=== PATIENT | female | born 1955 | race Caucasian/White ===

== ENCOUNTER 2016-05-07 10:56 | Emergency (ER) | payer BC ==
[~2016-05-07] VITALS: Wt 79.5 kg
[~2016-05-07 10:56] MED LIST: ASPI-664 PO; BENA20TA48 PO; LEVO50TA74 PO; METF-388 PO; SIMV20TA97 PO
[2016-05-07] MEDS ORDERED: IBUPROFEN 800 MG TAB PO ONE (12:00)
[2016-05-07] MEDS ORDERED: CELE100C PO (12:00)
--- NOTE | 2016-05-07 18:11 | ERD ---
ER Documentation Chief Complaint Date/Time DATE: 05/07/16 TIME: 18:06 Chief Complaint lle pain, denies trauma HPI Patient is a 61-year-old female. Yesterday she developed left calf pain suddenly when she was walking. There was no fall no trauma she has no shortness of breath no history of PE or DVT. No shortness of breath no fevers chills nausea vomiting. She says she has a history of CVA and takes tramadol. ROS All systems reviewed and are negative except as per history of present illness. Medications Home Meds Active Scripts Celecoxib* (Celebrex*) 100 Mg Capsule, 100 MG PO BID, #14 CAP Prov:UMU DELONG DO 05/07/16 Reported Medications Benazepril Hcl* (Benazepril Hcl*) 20 Mg Tablet, 20 MG PO DAILY, #30 TAB 01/11/16 Simvastatin* (Zocor*) 20 Mg Tablet, 20 MG PO QHS, #30 TAB 01/11/16 Levothyroxine Sodium* (Levothyroxine Sodium*) 50 Mcg Tablet, 50 MCG PO BEFORE BREAKFAST, #30 TAB 01/11/16 Metformin Hcl* (Metformin Hcl*) 1,000 Mg Tablet, 1000 MG PO WITH BREAKFAST, #30 TAB 01/11/16 Aspirin* (Aspirin* EC) 81 Mg Tablet.dr, 81 MG PO DAILY, TAB 01/11/16 Allergies Allergies: Coded Allergies: acetaminophen (Verified Allergy, Unknown, 01/11/16) codeine (Verified Allergy, Unknown, 01/11/16) PMhx/Soc Anesthesia Reaction: No Hx Neurological Disorder: Yes (TIA x 2) Hx Respiratory Disorders: No Hx Cardiac Disorders: Yes (HTN, high cholesterol) Hx Psychiatric Problems: No Hx Miscellaneous Medical Probl: Yes (DM type 2) Hx Alcohol Use: No Hx Substance Use: No Hx Tobacco Use: Yes Smoking Status: Never smoker Physical Exam Vitals Vital Signs Date Time Temp Pulse Resp B/P Pulse Ox O2 Delivery O2 Flow Rate FiO2 05/07/16 11:14 98.1 70 20 158/67 98 Physical Exam Const: [] Head: Atraumatic Eyes: Normal Conjunctiva ENT: Normal External Ears, Nose and Mouth. Neck: Full range of motion..~ No meningismus. Resp: Clear to auscultation bilaterally Cardio: Regular rate and rhythm, no murmurs Abd: Soft, non tender, non distended. Normal bowel sounds Skin: No petechiae or rashes Back: No midline or flank tenderness Ext: No cyanosis, or edema. Left calf diffusely mild to moderate tenderness to palpation, there is no tenseness, calf is soft there is no erythema no warmth no palpable masses no fibrous banding negative Diallo's test no Achilles tendon tenderness to palpation no edema or tenderness in the left popliteal area. Neur: Awake and alert Psych: Normal Mood and Affect Results 24 hrs Current Medications Medications (Trade) Dose Ordered Sig/Manohar Route PRN Reason Start Time Stop Time Status Last Admin Dose Admin Ibuprofen (Motrin) 800 mg ONCE ONCE PO 05/07/16 12:00 05/07/16 12:01 DC 05/07/16 11:53 Procedures/MDM I think this is likely a calf sprain. I doubt DVT or thrombophlebitis as the exam does not show or edema. This happened acutely while she was walking so it is likely a Sprain and I doubt serious calf tear. She has negative Diallo's test doubt Achilles tendon rupture. We applied Minor wrap for comfort support gave her pain medication here and crutches as well. Give pain medication for home as well. She should follow-up with her PCP in ED precautions discussed. I doubt PE as she is not breathing abnormally she has no shortness of breath and her pulse ox is normal. Vital signs are stable she is afebrile exam is otherwise not significant so I do not feel she requires an ultrasound or d- dimer to rule out DVT. Departure Diagnosis: Primary Impression: Pain of left calf Condition: Stable Patient Instructions: Muscle Strain, Extremity UMU DELONG DO May 07, 2016 18:11
== END 2016-05-07 12:31 | disposition home or self-care (01) ==
LOC: FTE 10:56
DX: M79.605 Pain in left leg (principal); I10 Essential (primary) hypertension; E11.9 Type 2 diabetes mellitus without complications; Z79.82 Long term (current) use of aspirin; Z79.84 Long term (current) use of oral hypoglycemic drugs; Z86.73 Personal history of transient ischemic attack (TIA), and cerebral infarction without residual deficits
CPT/HCPCS: 99283

== ENCOUNTER 2016-10-10 17:34 | Inpatient (IN) | payer BC ==
[~2016-10-10] VITALS: Ht 165.1 cm; Wt 66.5 kg
[~2016-10-10 17:34] MED LIST changes: +CELE100C PO; -METF-388 PO; +METF1000 PO; +SIMV20TA PO; -SIMV20TA97 PO
[2016-10-10 18:06] LABS: ADD SCAN DIFF NO
[2016-10-10 18:09] LABS: BASOPHIL # 0.1 10^3/ul (0.0-0.1); EOSINOPHILS # 0.1 10^3/ul (0.0-0.5); EOSINOPHILS % 1.9 % (0.0-7.0); HEMATOCRIT 36.2 % (37.0-47.0); HEMOGLOBIN 12.5 g/dl (12.0-16.0); LYMPHOCYTES # 2.1 10^3/ul (0.8-2.9); LYMPHOCYTES % 28.2 % (15.0-51.0); MEAN CORPUSCULAR HEMOGLOBIN 29.2 pg (29.0-33.0); MEAN CORPUSCULAR HGB CONC 34.5 g/dl (32.0-37.0); MEAN CORPUSCULAR VOLUME 84.6 fl (82.0-101.0); MEAN PLATELET VOLUME 9.6 fl (7.4-10.4); MONOCYTE # 0.6 10^3/ul (0.3-0.9); MONOCYTES % 8.8 % (0.0-11.0); NEUTROPHIL # 4.4 10^3/ul (1.6-7.5); NEUTROPHILS % 59.8 % (39.0-77.0); PLATELET COUNT 318 10^3/UL (140-415); RED BLOOD COUNT 4.28 10^6/ul (4.20-5.40); RED CELL DISTRIBUTION WIDTH 12.4 % (11.5-14.5); WHITE BLOOD COUNT 7.3 10^3/ul (4.8-10.8)
[2016-10-10 18:28] LABS: INR 0.91; PARTIAL THROMBOPLASTIN TIME 24.8 Sec (25.0-35.0); PROTIME 12.2 Sec (12.2-14.2)
[2016-10-10 18:29] LABS: ANION GAP 17 (8-16); BLOOD UREA NITROGEN 8 mg/dl (7-20); CALCIUM 9.8 mg/dl (8.4-10.2); CARBON DIOXIDE 23 mmol/L (21-31); CHLORIDE 92 mmol/L (97-110); GLUCOSE 98 mg/dl (70-220); POTASSIUM 3.5 mmol/L (3.5-5.1); SODIUM 128 mmol/L (135-144)
[2016-10-10 18:42] LABS: TROPONIN-I < 0.012 ng/ml (0.00-0.12)
--- NOTE | 2016-10-10 18:54 | RADRPT ---
PROCEDURE: CT Brain without contrast. CLINICAL INDICATION: Headache with visual loss TECHNIQUE: A CT of the brain was performed on a GE [employer] 64-slice CT scanner utilizing axial imaging from the skull base through the vertex without IV contrast. Multiplanar reformatted images were made. Images were reviewed on a PACS workstation. The CTDIvol is 39.97 mGy and the DLP is 654 .45 mGycm. One of the following 3 dose reduction techniques were used: Automated exposure control; adjustment of the mA and/or kV according to patient size; or use of iterative reconstruction technique. COMPARISON: None FINDINGS: There is no intracranial hemorrhage, mass effect, or midline shift. No extra-axial fluid collection is seen. The ventricles and sulci are age appropriate. Mild diffuse volume loss is present. A wed ge-shaped area of decreased attenuation is present in the right parietal convexity compatible with a chronic small vessel infarct. Mild decreased attenuation is present in the bilateral centrum semio quin and periventricular white matter compatible with mild chronic microvascular ischemic disease. The visualized scalp and calvarium are normal. The bilateral orbits are normal. The bilateral para nasal sinuses, mastoid air cells, and middle ear cavities are clear. IMPRESSION: 1. No evidence of acute intracranial hemorrhage, infarcts, or acute intracranial pathology. 2. Chr onic right parietal lobe small vessel infarct and mild chronic microvascular ischemic disease. 3. Mild diffuse volume loss RPTAT: HDC .Blanca Norris MD, MD Date Time Electronically viewed and signed by .Blanca Norris MD, MD on 10/10/2016 18:54 .C/
[2016-10-10 19:21] VITALS: TEMP 98.1
[2016-10-10] MEDS ORDERED: ASPIRIN 325 MG TAB PO ONE (19:30)
[2016-10-10] MEDS ORDERED: ACETAMINOPHEN 325 MG TAB PO ONE (21:00)
--- NOTE | 2016-10-10 21:05 | ERA ---
ER Documentation Chief Complaint Date/Time DATE: 10/10/16 Chief Complaint BIB SELF C/O SEEING FLASHING LIGHT AND HEADACHE X 2 HOURS HPI The patient is a 71-year-old female, presenting to the ER because of forgetfulness, transient loss of right peripheral vision, bitemporal headache that began about 2 hours ago. She has similar symptoms previously for TIA. The syncope, near syncope, neck pain, chest pain, dyspnea, abdominal pain, vomiting, dysuria, diarrhea. He does not smoke or drink Past medical history: History of TIA, diabetes mellitus, dyslipidemia, hypertension Past surgical history: Appendectomy, cholecystectomy ROS All systems reviewed and are negative except as per history of present illness. Medications Home Meds Reported Medications Benazepril Hcl* (Benazepril Hcl*) 20 Mg Tablet, 20 MG PO Q2D, #30 TAB TAKE EVERY OTHER DAY 01/11/16 Levothyroxine Sodium* (Levothyroxine Sodium*) 50 Mcg Tablet, 50 MCG PO BEFORE BREAKFAST, #30 TAB 01/11/16 Metformin Hcl* (Metformin Hcl*) 1,000 Mg Tablet, 1000 MG PO WITH BREAKFAST, #30 TAB 01/11/16 Discontinued Reported Medications Simvastatin* (Zocor*) 20 Mg Tablet, 20 MG PO QHS, #30 TAB 01/11/16 Aspirin* (Aspirin* EC) 81 Mg Tablet.dr, 81 MG PO DAILY, TAB 01/11/16 Discontinued Scripts Celecoxib* (Celebrex*) 100 Mg Capsule, 100 MG PO BID, #14 CAP Prov:UMU DELONG DO 05/07/16 Allergies Allergies: Coded Allergies: codeine (Verified Allergy, Unknown, 10/10/16) PMhx/Soc Anesthesia Reaction: No Hx Neurological Disorder: Yes (TIA x 2) Hx Respiratory Disorders: No Hx Cardiac Disorders: Yes (HTN, high cholesterol) Hx Psychiatric Problems: No Hx Miscellaneous Medical Probl: Yes (DM type 2) Hx Alcohol Use: No Hx Substance Use: No Hx Tobacco Use: Yes Smoking Status: Current every day smoker Physical Exam Vitals Vital Signs Date Time Temp Pulse Resp B/P Pulse Ox O2 Delivery O2 Flow Rate FiO2 10/10/16 19:21 98.1 71 18 153/78 97 Room Air 10/10/16 17:38 97.1 88 18 177/81 97 Physical Exam Const: No acute distress. Head: Atraumatic. Eyes: Normal Conjunctiva. ENT: Normal External Ears, Nose and Mouth. Neck: Full range of motion. No meningismus. Resp: Clear to auscultation bilaterally. Cardio: Regular rate and rhythm. Abd: Soft, non distended, normal bowel sounds, non tender. Skin: No petechiae or rashes. Back: No midline or flank tenderness. Ext: No cyanosis, or edema. Neur: Awake and alert. No focal deficit Psych: Normal Mood and Affect. Result Diagram: 10/10/16 1800 10/10/16 1800 Results 24 hrs Laboratory Tests Test 10/10/16 17:53 10/10/16 18:00 Bedside Glucose 99mg/dL White Blood Count 7.310^3/ul Red Blood Count 4.2810^6/ul Hemoglobin 12.5g/dl Hematocrit 36.2% Mean Corpuscular Volume 84.6fl Mean Corpuscular Hemoglobin 29.2pg Mean Corpuscular Hemoglobin Concent 34.5g/dl Red Cell Distribution Width 12.4% Platelet Count 94086^3/UL Mean Platelet Volume 9.6fl Neutrophils % 59.8% Lymphocytes % 28.2% Monocytes % 8.8% Eosinophils % 1.9% Basophils % 1.0% Nucleated Red Blood Cells % 0.0/100WBC Neutrophils # 4.410^3/ul Lymphocytes # 2.110^3/ul Monocytes # 0.610^3/ul Eosinophils # 0.110^3/ul Basophils # 0.110^3/ul Nucleated Red Blood Cells # 0.010^3/ul Prothrombin Time 12.2Sec Prothrombin Time Ratio 1.0 INR International Normalized Ratio 0.91 Activated Partial Thromboplast Time 24.8Sec Sodium Level 128mmol/L Potassium Level 3.5mmol/L Chloride Level 92mmol/L Carbon Dioxide Level 23mmol/L Anion Gap 17 Blood Urea Nitrogen 8mg/dl Creatinine 0.70mg/dl Glucose Level 98mg/dl Calcium Level 9.8mg/dl Troponin I < 0.012ng/ml Current Medications Medications (Trade) Dose Ordered Sig/Manohar Route PRN Reason Start Time Stop Time Status Last Admin Dose Admin Aspirin (Aspirin) 325 mg ONCE ONCE PO 10/10/16 19:30 10/10/16 19:31 DC 10/10/16 19:34 Acetaminophen (Tylenol Tab) 650 mg ONCE ONCE PO 10/10/16 21:00 10/10/16 21:01 DC 10/10/16 20:56 Procedures/[place] [id number] Radiology Main Line: [phone] DIAGNOSTIC IMAGING REPORT Patient: ZACHARY HADDAD : 1955 Age: 61 Sex: F MR #: [id number] DOS: 10/10/16 1752 Ordering MD: LA NENA BETHEA MD Location: E/R Room/Bed: PROCEDURE: CT Brain without contrast. CLINICAL INDICATION: Headache with visual loss TECHNIQUE: A CT of the brain was performed on a [employer] 64-slice CT scanner utilizing axial imaging from the skull base through the vertex without IV contrast. Multiplanar reformatted images were made. Images were reviewed on a PACS workstation. The CTDIvol is 39.97 mGy and the DLP is 654.45 mGycm. One of the following 3 dose reduction techniques were used: Automated exposure control; adjustment of the mA and/or kV according to patient size; or use of iterative reconstruction technique. COMPARISON: None FINDINGS: There is no intracranial hemorrhage, mass effect, or midline shift. No extra- axial fluid collection is seen. The ventricles and sulci are age appropriate. Mild diffuse volume loss is present. A wedge-shaped area of decreased attenuation is present in the right parietal convexity compatible with a chronic small vessel infarct. Mild decreased attenuation is present in the bilateral centrum semiovale and periventricular white matter compatible with mild chronic microvascular ischemic disease. The visualized scalp and calvarium are normal. The bilateral orbits are normal. The bilateral paranasal sinuses, mastoid air cells, and middle ear cavities are clear. IMPRESSION: 1. No evidence of acute intracranial hemorrhage, infarcts, or acute intracranial pathology. 2. Chronic right parietal lobe small vessel infarct and mild chronic microvascular ischemic disease. 3. Mild diffuse volume loss RPTAT: HDC .Blanca Norris MD, MD Date Time Electronically viewed and signed by .Blanca Norris MD, on 10/10/2016 18: 54 .C/ CC: LA NENA BETHEA MD MEDICAL MAKING DECISION: The patient is a 61-year-old female, presenting with acute transient ischemic attack. She was treated with aspirin 325 mg p.o. with good response The differential diagnoses considered include but are not limited to subarachnoid hemorrhage, occult trauma, CVA, meningitis, encephalitis, hypertension, tension, migraine, cluster, narcotic withdrawal, cervical spine disease. Departure Diagnosis: Primary Impression: TIA (transient ischemic attack) Condition: Stable Comments I discussed the findings with the patient. I discussed the patient with the on- call hospitalist Dr. Mccain at 7 PM who was made aware of the lab, the treatment, the patient condition. The patient is admitted to [facility] NENA Wolf MD Oct 10, 2016 21:05
[2016-10-10] MEDS ORDERED: ONDANSETRON 4 MG INJ IV STA (22:42)
[2016-10-10] MEDS ORDERED: morphine 4 MG/ML VIAL IV STA (22:42)
[2016-10-11] MEDS ORDERED: ONDANSETRON 4 MG INJ IV PRN
[2016-10-11] MEDS ORDERED: MAGNESIUM HYDROXIDE 30ML CUP PO PRN
[2016-10-11] MEDS ORDERED: ACETAMINOPHEN 325 MG TAB PO PRN
[2016-10-11] MEDS ORDERED: NACL 0.9% 3 ML SYG IV SCH
[2016-10-11] MEDS ORDERED: morphine 2 MG INJ IV PRN
[2016-10-11] MEDS ORDERED: ZOLPIDEM 5 MG TAB PO PRN
--- NOTE | 2016-10-11 01:12 | HP ---
DATE OF ADMISSION: 10/10/2016 TIME: 11:00 p.m. CHIEF COMPLAINT: Headache. HISTORY OF PRESENT ILLNESS: The patient is a 61-year-old female with a history of migraine headache s as well as non-insulin requiring diabetes and hypertension. The patient presents with severe head ache with decreased visual field on the right side and glares of light in her vision. The patient s tates that this has happened multiple times in the past, 4 times to be specific, and has been happen ing since 2011. She has seen a neurologist in the past, and she was not given a diagnosis. She had an MRI approximately 1 year ago that was reportedly normal. The patient denies any focal weakness in her extremities. She has no weakness in her face. She states that she had migraines in the past but stated that the migraine frequency has decreased. The patient has no other acute issues at thi s time. PAST MEDICAL HISTORY: Hypertension and diabetes, migraines. PAST SURGICAL HISTORY: Appendectomy, cholecystectomy. HOME MEDICATIONS: 1. Benazepril. 2. Synthroid. 3. Metformin. ALLERGIES: CODEINE. FAMILY HISTORY: Diabetes. SOCIAL HISTORY: Denies any alcohol, tobacco, drugs. She lives with her daughter. REVIEW OF SYSTEMS: A 12-point review of systems negative except for that mentioned in HPI. PHYSICAL EXAMINATION: VITAL SIGNS: Temperature is 99.1, pulse 71, respiratory rate is 18, BP is 122/68, saturation 97% on room air. GENERAL: No acute distress. Alert, oriented. HEENT: Normocephalic, atraumatic. CHEST: Clear to auscultation. CARDIOVASCULAR: Regular rate, rhythm. ABDOMEN: Nondistended, nontender, soft. EXTREMITIES: No clubbing, cyanosis, edema. LABORATORY: White count 7.3, hemoglobin 12.5, platelets are 318. Chemistry within normal limits ex cept for sodium 128, chloride 92, anion gap 17. Troponin is negative. INR is 0.9. DIAGNOSTICS: Brain CT shows no evidence of acute intracranial hemorrhage, infarction, acute intracr anial pathology. Chronic right parietal lobe small-vessel infarct and mild chronic microvascular is chemic disease, mild diffuse volume loss. ASSESSMENT AND PLAN: 1. Headache with aura, likely secondary to migraines, and the patient does have history of migraine s in the past. She is not on any medications for migraine headaches. The patient has no focal weak ness and no reported facial droop and is not felt to have an acute cerebrovascular accident or trans ient ischemic attack. Nonetheless, will rule out any possible etiology for CVA with 2D echo and a c arotid ultrasound. The patient would benefit from a neurology evaluation either in-house or as an o utpatient to treat underlying migraine headaches. Will admit to telemetry. 2. Hyponatremia, etiology unclear. Could be secondary to dehydration. Will treat with normal sali ne. 3. Hypothyroidism, stable. Continue home Synthroid. 4. Hypertension. Continue home benazepril. 5. Diabetes. Continue home metformin. 6. Prophylaxis: Lovenox. Dictated By: JAGJIT MEDNOZA MD BS/NTS Conf#: [id number] DID#: [id number]
[2016-10-11] MEDS: SOD CHLORIDE 0.9% 1,000 ML IV SCH ×4 (01:20→22:54)
[2016-10-11 06:19] LABS: ADD SCAN DIFF NO
[2016-10-11 06:30] LABS: BASOPHIL # 0.1 10^3/ul (0.0-0.1); BASOPHILS % 1.3 % (0.0-2.0); EOSINOPHILS # 0.1 10^3/ul (0.0-0.5); EOSINOPHILS % 2.5 % (0.0-7.0); HEMATOCRIT 36.8 % (37.0-47.0); HEMOGLOBIN 12.4 g/dl (12.0-16.0); LYMPHOCYTES # 1.8 10^3/ul (0.8-2.9); LYMPHOCYTES % 32.9 % (15.0-51.0); MEAN CORPUSCULAR HGB CONC 33.7 g/dl (32.0-37.0); MEAN CORPUSCULAR VOLUME 86.2 fl (82.0-101.0); MEAN PLATELET VOLUME 9.8 fl (7.4-10.4); MONOCYTE # 0.5 10^3/ul (0.3-0.9); MONOCYTES % 8.7 % (0.0-11.0); NEUTROPHILS % 54.4 % (39.0-77.0); PLATELET COUNT 275 10^3/UL (140-415); RED BLOOD COUNT 4.27 10^6/ul (4.20-5.40); RED CELL DISTRIBUTION WIDTH 12.6 % (11.5-14.5); WHITE BLOOD COUNT 5.5 10^3/ul (4.8-10.8)
[2016-10-11 07:07] LABS: CHOL/HDL RATIO 4.4 RATIO
[2016-10-11 07:17] LABS: CALCIUM 9.3 mg/dl (8.4-10.2); CREATININE 0.72 mg/dl (0.44-1.00); MAGNESIUM 2.1 mg/dl (1.7-2.5); PHOSPHORUS 3.9 mg/dl (2.5-4.9); POTASSIUM 4.2 mmol/L (3.5-5.1)
[2016-10-11 07:24] LABS: T3 UPTAKE 31.6 % (23.5-40.5)
--- NOTE | 2016-10-11 07:25 | RADRPT ---
PROCEDURE: Doppler US Carotids. CLINICAL INDICATION: Stroke TECHNIQUE: Multiple sonographic of the carotid bifurcation region and vertebral arteries were obta ined utilizing gipson scale, duplex and color-flow imaging. The images were reviewed on a PACS worksta tion. Stenoses were measured using velocity criteria that are extrapolated from diameter data as def ined by the Society of Radiologists in Ultrasound Consensus Conference Radiology 2003; 229;340-346. This study does indirectly reference the measurement of the distal ICA diameter as the denominator f or stenosis measurement, where measured. COMPARISON: None FINDINGS: Evaluation of the right carotid system shows there is mild intimal medial thickening without signifi cant plaque formation.. Evaluation of the left carotid system shows there is mild intimal medial thickening without signific ant plaque formation.. There is antegrade flow within the vertebral arteries bilaterally. RIGHT CAROTID MEASUREMENTS: Common Carotid Jasbct84.1 (cm/sec) Internal Carotid Artery - omtvlkmn36.7 (cm/sec) Internal Carotid Artery - mid44.3 (cm/sec) Internal Carotid Artery - nasizp87 (cm/sec) Internal Carotid/Common Carotid0.7 LEFT CAROTID MEASUREMENTS: Common Carotid Artery 76.6 (cm/sec) Internal Carotid Artery - proximal 56.5 (cm/sec) Internal Carotid Artery - mid 61.1 (cm/sec) Internal Carotid Artery - distal 60.1 (cm/sec) Internal Carotid/Common Carotid 0.8 IMPRESSION: Minimal atherosclerotic change. No hemodynamically significant stenosis. RPTAT: HLBE Physician Katie Date Time Electronically viewed and signed by Physician Katie on 10/11/2016 07:25 JESS/
[2016-10-11] MEDS: LEVOTHYROXINE 50 MCG TAB PO SCH (07:59)
[2016-10-11] MEDS ORDERED: metFORMIN 500 MG TAB PO SCH (08:00)
[2016-10-11] MEDS ORDERED: BENAZEPRIL 20 MG TAB PO SCH (09:00)
[2016-10-11] MEDS: ENOXAPARIN 40 MG/0.4 ML SYG SC SCH (09:00)
[2016-10-11] MEDS: HYDROCODONE/APAP (5/325) TAB PO PRN (10:25)
--- NOTE | 2016-10-11 15:55 | RADRPT ---
PROCEDURE: MRI Brain without and with contrast. CLINICAL INDICATION: Migraine with visual loss TECHNIQUE: Multiplanar MRI of the brain without and with contrast was performed on a 3.0 T scanner with the following sequences obtained: T1-weighted, T2-weighted/FLAIR, diffusion weighted (with ADC map), GRE, postcontrast T1-weighted. 10 cc Magnevist intravenous contrast was administered. COMPARISON: CT brain 10/10/2016 FINDINGS: No acute/recent ischemic infarction or intracranial hemorrhage / blood degradation products are iden tified. No extra-axial fluid collection is seen. There is no mass effect. No midline shift is identified. The ventricles and sulci are mildly enlarged, compatible with volume loss. Minimal areas of increased T2 / FLAIR signal intensity are present in the periventricular - deep whi te matter, nonspecific but likely related to chronic small vessel ischemic changes. No abnormal par enchymal, leptomeningeal or dural enhancement is identified. Flow voids are identified in the proximal intracranial arteries and dural sinuses suggesting patency . The mastoid air cells and paranasal sinuses are grossly clear. IMPRESSION: 1. No evidence of acute intracranial pathology. 2. Mild volume loss, with minimal chronic small vessel ischemic changes. RPTAT: GG .Chirag Meza MD, MD Date Time Electronically viewed and signed by .Chirag Meza MD, on 10/11/2016 15:54 .O/
--- NOTE | 2016-10-11 16:48 | PN ---
Date/Time of Note Date/Time of Note DATE: 10/11/16 TIME: 16:45 Assessment/Plan VTE Prophylaxis VTE Prophylaxis Intervention: SCD's Lines/Catheters IV Catheter Type (from Nrs): Peripheral IV Assessment/Plan Chief Complaint/Hosp Course Assessment and plan 1. Headache with aura secondary to migraines versus possible TIA. MRI of the brain was negative for acute pathology. Patient still reports having some paresthesias on bilateral lower extremities below the knee as well as bilateral upper extremities. Neurologist to follow. 2. History of diabetes. Continue on metformin 3. Level thyroxine. Continue on Synthroid medication 4. Hyponatremia. Improving at present. Continue on IV hydration Disposition plan: Neurologist to follow. Will follow up with recommendations. Discussed plan of care with Dr. Curiel Problems: Subjective 24 Hr Interval Summary Free Text/Dictation No acute distress seen at this time. Reports still feeling some paresthesias below the knee and also in bilateral upper extremity Exam/Review of Systems Vital Signs Vitals Vital Signs Date Time Temp Pulse Resp B/P Pulse Ox O2 Delivery O2 Flow Rate FiO2 10/11/16 16:00 57 14 113/67 99 10/11/16 12:11 Room Air 10/10/16 19:21 98.1 Exam Constitutional: alert, oriented Psych: no complaints Head: normocephalic Neck: supple, No jvd Respiratory: clear to auscultation, normal air movement Cardiovascular: regular rate and rhythm Gastrointestinal: non-tender, soft Neurological: nl mental status, nl speech Results Result Diagram: 10/11/16 0553 10/11/16 0553 Results 24 hrs Laboratory Tests Test 10/10/16 17:53 10/10/16 18:00 10/11/16 05:53 Bedside Glucose 99 White Blood Count 7.3 5.5 # Red Blood Count 4.28 4.27 Hemoglobin 12.5 12.4 Hematocrit 36.2 L 36.8 L Mean Corpuscular Volume 84.6 86.2 Mean Corpuscular Hemoglobin 29.2 29.0 Mean Corpuscular Hemoglobin Concent 34.5 33.7 Red Cell Distribution Width 12.4 # 12.6 Platelet Count 318 275 Mean Platelet Volume 9.6 9.8 Neutrophils % 59.8 54.4 Lymphocytes % 28.2 32.9 Monocytes % 8.8 8.7 Eosinophils % 1.9 2.5 Basophils % 1.0 1.3 Nucleated Red Blood Cells % 0.0 0.0 Neutrophils # 4.4 3.0 Lymphocytes # 2.1 1.8 Monocytes # 0.6 0.5 Eosinophils # 0.1 0.1 Basophils # 0.1 0.1 Nucleated Red Blood Cells # 0.0 0.0 Prothrombin Time 12.2 Prothrombin Time Ratio 1.0 INR International Normalized Ratio 0.91 Activated Partial Thromboplast Time 24.8 L Sodium Level 128 L 134 L Potassium Level 3.5 4.2 Chloride Level 92 L 99 Carbon Dioxide Level 23 26 Anion Gap 17 H 13 Blood Urea Nitrogen 8 7 Creatinine 0.70 0.72 Glucose Level 98 86 Calcium Level 9.8 9.3 Troponin I < 0.012 Hemoglobin A1c 5.7 Phosphorus Level 3.9 Magnesium Level 2.1 Triglycerides Level 114 Cholesterol Level 236 H LDL Cholesterol, Calculated 160 HDL Cholesterol 53 Cholesterol/HDL Ratio 4.4 Free Thyroxine Index 3.16 Thyroxine (T4) 10.0 Triiodothyronine (T3) Uptake 31.6 Medications Medications Current Medications Sodium Chloride (NS) 1,000 ml @ 125 mls/hr Q8H IV Last administered on 08:32; Admin Dose 125 MLS/HR; Start 10/10/16 at 23:57 Ondansetron HCl (Zofran Inj) 4 mg Q6H PRN IV NAUSEA AND/OR VOMITING; Start at 00:00 Acetaminophen (Tylenol Tab) 650 mg Q6H PRN PO PAIN LEVEL 1-3 OR FEVER; Start at 00:00 Acetaminophen/ Hydrocodone Bitart ([place] (5/325)) 1 tab Q6H PRN PO MODERATE PAIN LEVEL 4-6 Last administered on 10/11/16 10:25; Admin Dose 1 TAB; Start at 00:00 Morphine Sulfate (morphine) 2 mg Q4H PRN IV SEVERE PAIN LEVEL 7-10; Start 10/11 at 00:00 Magnesium Hydroxide (Milk Of Mag) 30 ml DAILY PRN PO CONSTIPATION; Start at 00:00 Zolpidem Tartrate (Ambien) 5 mg QHS PRN PO SLEEP; Start 10/11/16 at 00:00 Enoxaparin Sodium (Lovenox) 40 mg DAILY SC Last administered on 10/11/16 09:00 ; Admin Dose 40 MG; Start 10/11/16 at 09:00 Benazepril HCl (Lotensin) 20 mg Q2D@09 PO ; Start 10/12/16 at 09:00 RANDA MUNGUIA Oct 11, 2016 16:48
[2016-10-11 18:53] VITALS: BP 138/76; PULSE 66; RESP 17
[2016-10-11 18:59] VITALS: Ht 165.1 cm; Wt 66.5 kg
[2016-10-11 20:00] VITALS: BP 117/71; RESP 20
[2016-10-11 20:24] VITALS: PULSE 60
--- NOTE | 2016-10-11 20:26 | CONS ---
Date/Time of Note Date/Time of Note DATE: 10/11/16 TIME: 20:25 Assessment/Plan Assessment/Plan Chief Complaint/Hosp Course 61 year old female with history of HTN, DM , on admission hyponatremia with Na: 128 with migraine headaches w aura admitted with severe headache associated with blurred vision, likely migraine w aura. Recommendations: MRI Brain with and without contrast- chronic small vessel ischemic changes Duplex is negative recommend reglan 10 mg q8h prn for nausea advised patient she may benefit from high doses of Ibuprofen 800 mg at migraine onset in the future continue IVF will follow up again tomorrow she will also require outpatient neurology follow up to manage migraines Problems: Consultation Date/Type/Reason Admit Date/Time Oct 10, 2016 at 20:13 Date of Consultation: Oct 11, 2016 Type of Consultation: Neurology Reason for Consultation eval of headaches w visual changes Referring Provider: RANDA MUNGUIA of Present Illness 61 year old female history of migraine headaches, non-insulin dependent DM, HTN presenting with complaints of severe headaches with decreased visual acuity on right side with blurred vision and complaints of nausea and dizziness. She experiences episodes about 1-2 times a month similar to this, has had events like this in the past up to 4 she admits to. She has seen a neurologist before, received MRI and has not been prescribed any prophylactic meds. She has no focal deficits at this time. Her headaches are currently much improved with morphine given in the ER. Psychological: no complaints Social History Smoking Status: Current every day smoker Exam/Review of Systems Vital Signs Vitals Vital Signs Date Time Temp Pulse Resp B/P Pulse Ox O2 Delivery O2 Flow Rate FiO2 10/11/16 20:24 60 10/11/16 20:00 98.2 20 117/71 97 10/11/16 12:11 Room Air Exam Constitutional: alert, oriented, well developed Head: atraumatic, normocephalic Eyes: EOMI, nl conjunctiva Neurological: QUALITY LAB TECHNICIAN II-XII intact, DTR's symmetric, nl mental status, nl speech, nl strength Results Result Diagram: 10/11/16 0553 10/11/16 0553 Results 24 hrs Laboratory Tests Test 10/11/16 05:53 10/11/16 18:16 White Blood Count 5.5 # Red Blood Count 4.27 Hemoglobin 12.4 Hematocrit 36.8 L Mean Corpuscular Volume 86.2 Mean Corpuscular Hemoglobin 29.0 Mean Corpuscular Hemoglobin Concent 33.7 Red Cell Distribution Width 12.6 Platelet Count 275 Mean Platelet Volume 9.8 Neutrophils % 54.4 Lymphocytes % 32.9 Monocytes % 8.7 Eosinophils % 2.5 Basophils % 1.3 Nucleated Red Blood Cells % 0.0 Neutrophils # 3.0 Lymphocytes # 1.8 Monocytes # 0.5 Eosinophils # 0.1 Basophils # 0.1 Nucleated Red Blood Cells # 0.0 Sodium Level 134 L Potassium Level 4.2 Chloride Level 99 Carbon Dioxide Level 26 Anion Gap 13 Blood Urea Nitrogen 7 Creatinine 0.72 Glucose Level 86 Hemoglobin A1c 5.7 Calcium Level 9.3 Phosphorus Level 3.9 Magnesium Level 2.1 Triglycerides Level 114 Cholesterol Level 236 H LDL Cholesterol, Calculated 160 HDL Cholesterol 53 Cholesterol/HDL Ratio 4.4 Free Thyroxine Index 3.16 Thyroxine (T4) 10.0 Triiodothyronine (T3) Uptake 31.6 Bedside Glucose 149 Medications Medications Current Medications Sodium Chloride (NS) 1,000 ml @ 125 mls/hr Q8H IV Last administered on 08:32; Admin Dose 125 MLS/HR; Start 10/10/16 at 23:57 Ondansetron HCl (Zofran Inj) 4 mg Q6H PRN IV NAUSEA AND/OR VOMITING; Start at 00:00 Acetaminophen (Tylenol Tab) 650 mg Q6H PRN PO PAIN LEVEL 1-3 OR FEVER; Start at 00:00 Acetaminophen/ Hydrocodone Bitart ([place] (5/325)) 1 tab Q6H PRN PO MODERATE PAIN LEVEL 4-6 Last administered on 10/11/16 10:25; Admin Dose 1 TAB; Start at 00:00 Morphine Sulfate (morphine) 2 mg Q4H PRN IV SEVERE PAIN LEVEL 7-10; Start 10/11 at 00:00 Magnesium Hydroxide (Milk Of Mag) 30 ml DAILY PRN PO CONSTIPATION; Start at 00:00 Zolpidem Tartrate (Ambien) 5 mg QHS PRN PO SLEEP; Start 10/11/16 at 00:00 Enoxaparin Sodium (Lovenox) 40 mg DAILY SC Last administered on 10/11/16 09:00 ; Admin Dose 40 MG; Start 10/11/16 at 09:00 Benazepril HCl (Lotensin) 20 mg Q2D@09 PO ; Start 10/12/16 at 09:00 TRICE PICKETT MD Oct 11, 2016 20:26
[2016-10-12] VITALS (7 sets, daily range): BP systolic 100–150; BP diastolic 58–68; PULSE 53–64; RESP 18–20
[2016-10-12] MEDS: LEVOTHYROXINE 50 MCG TAB PO SCH (06:17)
[2016-10-12] MEDS: SOD CHLORIDE 0.9% 1,000 ML IV SCH ×2 (06:33→09:29)
[2016-10-12] MEDS ORDERED: BENAZEPRIL 20 MG TAB PO SCH (09:00)
[2016-10-12] MEDS: ENOXAPARIN 40 MG/0.4 ML SYG SC SCH (09:33)
--- NOTE | 2016-10-12 10:52 | CONS ---
Date/Time of Note Date/Time of Note DATE: 10/12/16 TIME: 10:51 Consult Date/Type/Reason Admit Date/Time Oct 10, 2016 at 20:13 Initial Consult Date 10/11/16 Type of Consultation: Neurology Reason for Consultation migraine w aura Ordering Provider: RANDA MUNGUIA Subjective overnight no issues today she c/o tension sensation in her head after eating breakfast and taking am meds Objective Vital Signs Date Time Temp Pulse Resp B/P Pulse Ox O2 Delivery O2 Flow Rate FiO2 10/12/16 08:43 64 10/12/16 07:39 97.2 18 124/67 100 10/11/16 12:11 Room Air Intake and Output 10/11/16 10/11/16 10/12/16 15:00 23:00 07:00 Intake Total 1000 ml 1200 ml Output Total 700 ml Balance 1000 ml 500 ml Exam Constitutional: alert, oriented, well developed Head: atraumatic, normocephalic Eyes: EOMI, nl conjunctiva Neurological: MENTAL HEALTH AIDE II-XII intact, DTR's symmetric, nl mental status, nl speech, nl strength Results/Medications Result Diagram: 10/11/16 0553 10/11/16 0553 Results 24 hrs Laboratory Tests Test 10/11/16 18:16 Bedside Glucose 149 Medications Current Medications Sodium Chloride (NS) 1,000 ml @ 125 mls/hr Q8H IV Last administered on 09:29; Admin Dose 125 MLS/HR; Start 10/10/16 at 23:57 Ondansetron HCl (Zofran Inj) 4 mg Q6H PRN IV NAUSEA AND/OR VOMITING; Start at 00:00 Acetaminophen (Tylenol Tab) 650 mg Q6H PRN PO PAIN LEVEL 1-3 OR FEVER; Start at 00:00 Acetaminophen/ Hydrocodone Bitart ([place] (5/325)) 1 tab Q6H PRN PO MODERATE PAIN LEVEL 4-6 Last administered on 10/11/16 10:25; Admin Dose 1 TAB; Start at 00:00 Morphine Sulfate (morphine) 2 mg Q4H PRN IV SEVERE PAIN LEVEL 7-10; Start 10/11 at 00:00 Magnesium Hydroxide (Milk Of Mag) 30 ml DAILY PRN PO CONSTIPATION; Start at 00:00 Zolpidem Tartrate (Ambien) 5 mg QHS PRN PO SLEEP; Start 10/11/16 at 00:00 Enoxaparin Sodium (Lovenox) 40 mg DAILY SC Last administered on 10/12/16 09:33 ; Admin Dose 40 MG; Start 10/11/16 at 09:00 Benazepril HCl (Lotensin) 20 mg Q2D@09 PO Last administered on 10/12/16 09:30 ; Admin Dose 20 MG; Start 10/12/16 at 09:00 Assessment/Plan Chief Complaint/Hosp Course 61 year old female with history of HTN, DM , on admission hyponatremia with Na: 128 with migraine headaches w aura admitted with severe headache associated with blurred vision, likely migraine w aura. Recommendations: MRI Brain with and without contrast- chronic small vessel ischemic changes no stroke Duplex is negative recommend reglan 10 mg q8h prn for nausea continue IVF outpatient follow up w neurology for migraine management, she does not experienced migraines frequent enough to start on a daily prophylaxis advised patient she may benefit from high doses of Ibuprofen 800 mg at migraine onset in the future Problems: TRICE PICKETT MD Oct 12, 2016 10:52
[2016-10-12] MEDS: HYDROCODONE/APAP (5/325) TAB PO PRN (11:06)
[2016-10-12 11:19] LABS: ADD SCAN DIFF NO
[2016-10-12 11:23] LABS: BASOPHIL # 0.1 10^3/ul (0.0-0.1); BASOPHILS % 1.2 % (0.0-2.0); EOSINOPHILS # 0.1 10^3/ul (0.0-0.5); EOSINOPHILS % 1.5 % (0.0-7.0); HEMATOCRIT 38.2 % (37.0-47.0); HEMOGLOBIN 12.6 g/dl (12.0-16.0); LYMPHOCYTES # 1.3 10^3/ul (0.8-2.9); LYMPHOCYTES % 22.7 % (15.0-51.0); MEAN CORPUSCULAR HEMOGLOBIN 28.6 pg (29.0-33.0); MEAN CORPUSCULAR VOLUME 86.8 fl (82.0-101.0); MEAN PLATELET VOLUME 9.9 fl (7.4-10.4); MONOCYTE # 0.4 10^3/ul (0.3-0.9); MONOCYTES % 7.2 % (0.0-11.0); NEUTROPHIL # 3.9 10^3/ul (1.6-7.5); NEUTROPHILS % 67.1 % (39.0-77.0); PLATELET COUNT 303 10^3/UL (140-415); RED CELL DISTRIBUTION WIDTH 12.6 % (11.5-14.5); WHITE BLOOD COUNT 5.8 10^3/ul (4.8-10.8)
[2016-10-12 11:41] LABS: BILIRUBIN,INDIRECT 0.3 mg/dl (0-1.1); BILIRUBIN,TOTAL 0.3 mg/dl (0.2-1.3); CALCIUM 9.5 mg/dl (8.4-10.2); CREATININE 0.68 mg/dl (0.44-1.00); POTASSIUM 4.2 mmol/L (3.5-5.1); TOTAL PROTEIN 7.5 g/dl (6.1-8.1)
[2016-10-12] MEDS ORDERED: FIORICET PO (12:52)
--- NOTE | 2016-10-12 12:54 | PDOCDIS ---
Discharge Instructions DIAGNOSIS Discharge Diagnosis 1. Suspect migraine with aura 2. Essential hypertension 3. Diabetes 4. Hyponatremia CONDITION Patient Condition: Stable HOME CARE INSTRUCTIONS: Diet Instructions: Low Fat /CholesterolSpecial Diet: carb controlled FOLLOW UP/APPOINTMENTS Follow-up Plan 1. Follow-up with your primary care provider within a week RANDA MUNGUIA Oct 12, 2016 12:54
--- NOTE | 2016-10-12 13:24 | RADRPT ---
Echocardiogram Report Patient Name: ZACHARY HADDAD Gender: Female Date: 1955 Study Date: 11-Oct-2016 Channel Layer: Denilson Nelson [facility] Location: [facility] Ref. Physician: JAGJIT MENDOZA Quality: Good Procedures: Transthoracic echocardiogram with complete 2D, M-Mode, and doppler examination. Indications: Cerebrovascular Accident. 2D/M Mode Doppler Measurement Value Normal Ranges Measurement Value Normal Ranges LVIDd 2D 4.0 3.5 - 5.6 cm AV Peak Feroz 1.4 m/sec LVIDs 2D 1.4 2.1 - 4.1 cm AV Peak PG 7.0 mmHg FS 2D 65.1 % LVOT Peak Feroz 1.0 m/sec LVPWd 2D 0.8 0.6 - 1.1 cm LVOT Peak PG 4.0 mmHg IVSd 2D 0.9 0.6 - 1.1 cm MV E Peak Feroz 0.7 m/sec IVS/LVPW 2D 1.0 MV A Peak Feroz 0.8 m/sec AoR Diam 2D 2.8 2.0 - 3.7 cm MV E/A 0.9 LA/Ao 2D 1 0 - 1 MV Decel Time 222 msec EDV 2D 61.6 cm3 MV E/A 0.9 ESV 2D 2.6 cm3 TR Peak Feroz 2.6 m/sec LA Dimen 2D 3.6 2.3 - 4.0 cm TR Peak PG 28.0 mmHg RVSP 31.0 mmHg Findings Left Ventricle: Normal left ventricular systolic function. Normal left ventricular cavity size. Normal left ventricular wall thickness. Ejection fraction is visually estimated at 6065 %. Tissue Doppler/Mitral Doppler indices are within normal limits. Right Ventricle: Normal right ventricular size. Normal right ventricular systolic function. Left Atrium: The left atrium is normal in size. Right Atrium: The right atrium is normal in size. Mitral Valve: Mitral valve leaflets appear mildly thickened. Mild mitral annular calcification. Trace mitral regurgitation. Aortic Valve: Normal appearance of the aortic valve. No significant aortic stenosis or insufficiency. Tricuspid Valve: Normal appearance of the tricuspid valve. Estimated peak PA systolic pressure 31 mmHg. There is mild tricuspid regurgitation. Pulmonic Valve: Normal pulmonic valve appearance. Pericardium: Normal pericardium with no significant pericardial effusion. Aorta: Normal aortic root. IVC: Normal size and normal respiratory collapse consistent with normal right atrial pressure. Conclusions 1.The left ventricle is normal in size and systolic function. 2.Estimated left ventricular ejection fraction of 60-65%. Electronically Signed By: Remi Schulte 12-Oct-2016 13:24:22 -0700 Patient Name: ZACHARY HADDAD Study Date: 11-Oct-2016 [id number]
[2016-10-12] MEDS ORDERED: metFORMIN 500 MG TAB PO SCH (14:00)
== END 2016-10-12 14:51 | disposition home or self-care (01) | DRG 103 ==
LOC: E/R 17:34 → TEL 20:13
PROVIDERS: ADMIT Internal Medicine; ATTEND Internal Medicine
DX: G43.109 Migraine with aura, not intractable, without status migrainosus (principal); E87.1 Hypo-osmolality and hyponatremia; I10 Essential (primary) hypertension; G45.9 Transient cerebral ischemic attack, unspecified; Z86.73 Personal history of transient ischemic attack (TIA), and cerebral infarction without residual deficits; E11.9 Type 2 diabetes mellitus without complications; E78.5 Hyperlipidemia, unspecified; F17.200 Nicotine dependence, unspecified, uncomplicated; R20.9 Unspecified disturbances of skin sensation
CPT/HCPCS: 36415; 70450; 70553; 80048; 80061; 80076; 82962; 83036; 83735; 84100; 84436; 84479; 84484; 85025; 85610; 85730; 93306; 93880; 96361; 96372; 96374; 96375; J1650; J2270; J2405; J7030

== ENCOUNTER 2016-10-14 13:22 | Emergency (ER) | payer BC ==
[~2016-10-14] VITALS: Ht 152.4 cm; Wt 65.0 kg
[~2016-10-14 13:22] MED LIST changes: -ASPI-664 PO; -CELE100C PO; +FIORICET PO; -SIMV20TA PO
[2016-10-14 13:27] VITALS: Ht 152.4 cm; Wt 65.0 kg
[2016-10-14 14:20] LABS: ADD SCAN DIFF NO
[2016-10-14 14:29] LABS: ADD UMIC NO; UR ASCORBIC ACID NEGATIVE (NEGATIVE); UR BILIRUBIN (Dip) NEGATIVE (NEGATIVE); UR BLOOD (Dip) NEGATIVE (NEGATIVE); UR CLARITY CLEAR (CLEAR); UR COLOR COLORLESS (YELLOW); UR GLUCOSE (Dip) NEGATIVE (NEGATIVE); UR KETONES (Dip) TRACE mg/dL (NEGATIVE); UR LEUKOCYTE ESTERASE (Dip) NEGATIVE Leu/ul (NEGATIVE); UR NITRITE (Dip) NEGATIVE (NEGATIVE); UR SPECIFIC GRAVITY (Dip) 1.002 (1.003-1.030); UR TOTAL PROTEIN (Dip) NEGATIVE (NEGATIVE); UR UROBILINOGEN (Dip) NEGATIVE (NEGATIVE)
[2016-10-14 14:34] LABS: BASOPHIL # 0.1 10^3/ul (0.0-0.1); BASOPHILS % 0.7 % (0.0-2.0); EOSINOPHILS # 0.1 10^3/ul (0.0-0.5); EOSINOPHILS % 1.2 % (0.0-7.0); HEMATOCRIT 38.3 % (37.0-47.0); HEMOGLOBIN 13.3 g/dl (12.0-16.0); LYMPHOCYTES # 1.5 10^3/ul (0.8-2.9); LYMPHOCYTES % 19.6 % (15.0-51.0); MEAN CORPUSCULAR HEMOGLOBIN 29.3 pg (29.0-33.0); MEAN CORPUSCULAR HGB CONC 34.7 g/dl (32.0-37.0); MEAN CORPUSCULAR VOLUME 84.4 fl (82.0-101.0); MEAN PLATELET VOLUME 9.7 fl (7.4-10.4); MONOCYTE # 0.5 10^3/ul (0.3-0.9); MONOCYTES % 6.1 % (0.0-11.0); NEUTROPHIL # 5.4 10^3/ul (1.6-7.5); NEUTROPHILS % 72.1 % (39.0-77.0); PLATELET COUNT 318 10^3/UL (140-415); RED BLOOD COUNT 4.54 10^6/ul (4.20-5.40); WHITE BLOOD COUNT 7.5 10^3/ul (4.8-10.8)
[2016-10-14 14:41] LABS: INR 0.83; PROTIME 11.4 Sec (12.2-14.2); PT RATIO 0.9
[2016-10-14 14:45] LABS: ANION GAP 15 (8-16); BLOOD UREA NITROGEN 8 mg/dl (7-20); CALCIUM 10.1 mg/dl (8.4-10.2); CARBON DIOXIDE 25 mmol/L (21-31); CHLORIDE 93 mmol/L (97-110); CREATININE 0.67 mg/dl (0.44-1.00); GLUCOSE 97 mg/dl (70-220); POTASSIUM 4.4 mmol/L (3.5-5.1); SODIUM 129 mmol/L (135-144)
--- NOTE | 2016-10-14 14:51 | RADRPT ---
PROCEDURE: CT brain without contrast CLINICAL INDICATION: Dizziness, possible stroke TECHNIQUE: CT of the brain without contrast performed on a multidetector CT scanner, with multiplan ar reformats. One or more of the following dose reduction techniques were used: Automated exposure control, adjustment in mA and / or kV according to patient size, use of iterative reconstructive naomi hnique. CTDIvol = 44 mGy; DLP = 630 mGy-cm. COMPARISON: CT brain 10/10/2016 FINDINGS: No acute intracranial hemorrhage is identified. No extra-axial fluid collection is seen. There is no mass effect. No midline shift is identified. The ventricles and sulci are mildly enlarged compatible with volume loss. There are minimal areas of hypodensity in the periventricular - deep white matter which are nonspeci fic but suggestive of chronic small vessel ischemic changes. Harry-white differentiation is preserve d. Atherosclerotic calcifications of the intracranial internal carotid arteries are noted. Osseous structures are unremarkable. Mastoid air cells and imaged paranasal sinuses grossly clear. IMPRESSION: 1. No evidence of acute intracranial pathology. 2. Mild volume loss, with minimal chronic small vessel ischemic changes. RPTAT: EE .Chirag Meza MD, MD Date Time Electronically viewed and signed by .Chirag Meza MD, on 10/14/2016 14:50 .O/
--- NOTE | 2016-10-14 15:09 | RADRPT ---
PROCEDURE: XR Chest. CLINICAL INDICATION: Shortness of breath. TECHNIQUE: A single portable view of the chest was obtained. COMPARISON: 01/11/2016 FINDINGS: The cardiomediastinal silhouette is within normal limits. The lungs and pleural spaces are clear. The soft tissues and osseous structures are unremarkable. IMPRESSION: No acute cardiopulmonary disease. RPTAT: HPNM Physician Cristopher Date Time Electronically viewed and signed by Luis Mao Physician on 10/14/2016 15:09 /
[2016-10-14 15:10] LABS: BARBITURATES Negative (NEGATIVE); BENZODIAZEPINES Negative (NEGATIVE); CANNABINOIDS Negative (NEGATIVE); COCAINE Negative (NEGATIVE); OPIATES Negative (NEGATIVE); TROPONIN-I < 0.012 ng/ml (0.00-0.12)
[2016-10-14] MEDS ORDERED: IBUP-1542 PO (15:19)
--- NOTE | 2016-10-14 15:22 | ERD ---
ER Documentation Chief Complaint Date/Time DATE: 10/14/16 TIME: 15:21 Chief Complaint throat/jaw pain x 3 days; lr; left breast pain HPI Patient is a 61-year-old female with diabetes and hypertension who presents with chest pain and headache. The patient has chest pain which comes and goes. She was recently discharged on October 12. She says "my blood pressure go so high that I cannot move". She said that she would prefer to go home if everything was negative as she was just recently admitted and had a full workup at that time. She says that her primary doctor is Dr. Deborah Harry. ROS All systems reviewed and are negative except as per history of present illness. Medications Home Meds Active Scripts Ibuprofen* (Motrin*) 600 Mg Tab, 600 MG PO Q8, #30 TAB Prov:NORMA JACKSON MD 10/14/16 Acetamin/Butalbital/Caffeine* (Fioricet*) [id number] Tab, 1 TAB PO Q4H Y for PAIN LEVEL 1-5, #20 TAB Prov:RANDA MUNGUIA 10/12/16 Reported Medications Benazepril Hcl* (Benazepril Hcl*) 20 Mg Tablet, 20 MG PO Q2D, #30 TAB TAKE EVERY OTHER DAY 01/11/16 Levothyroxine Sodium* (Levothyroxine Sodium*) 50 Mcg Tablet, 50 MCG PO BEFORE BREAKFAST, #30 TAB 01/11/16 Metformin Hcl* (Metformin Hcl*) 1,000 Mg Tablet, 1000 MG PO WITH BREAKFAST, #30 TAB 01/11/16 Discontinued Reported Medications Simvastatin* (Zocor*) 20 Mg Tablet, 20 MG PO QHS, #30 TAB 01/11/16 Aspirin* (Aspirin* EC) 81 Mg Tablet., 81 MG PO DAILY, TAB 01/11/16 Discontinued Scripts Celecoxib* (Celebrex*) 100 Mg Capsule, 100 MG PO BID, #14 CAP Prov:UMU DELONG DO 05/07/16 Allergies Allergies: Coded Allergies: codeine (Verified Allergy, Unknown, 10/10/16) PMhx/Soc History of Surgery: Yes (Gallstone/appendectomy) Anesthesia Reaction: No Hx Neurological Disorder: No Hx Respiratory Disorders: No Hx Cardiac Disorders: Yes (HTN) Hx Psychiatric Problems: No Hx Miscellaneous Medical Probl: No Hx Alcohol Use: No Hx Substance Use: No Hx Tobacco Use: Yes Smoking Status: Unknown if ever smoked FmHx Family History: diabetes Physical Exam Vitals Vital Signs Date Time Temp Pulse Resp B/P Pulse Ox O2 Delivery O2 Flow Rate FiO2 10/14/16 13:27 99.2 95 18 168/79 98 Physical Exam Const: No acute distress Head: Atraumatic Eyes: Normal Conjunctiva ENT: Normal External Ears, Nose and Mouth. Neck: Full range of motion..~ No meningismus. Resp: Clear to auscultation bilaterally Cardio: Regular rate and rhythm, no murmurs Abd: Soft, non tender, non distended. Normal bowel sounds Skin: No petechiae or rashes Back: No midline or flank tenderness Ext: No cyanosis, or edema Neur: Awake and alert, cranial nerves II through XII are intact, strength is 5 out of 5 in all 4 extremities, no slurred speech Psych: Normal Mood and Affect Result Diagram: 10/14/16 1405 10/14/16 1405 Results 24 hrs Laboratory Tests Test 10/14/16 14:05 10/14/16 14:06 White Blood Count 7.510^3/ul Red Blood Count 4.5410^6/ul Hemoglobin 13.3g/dl Hematocrit 38.3% Mean Corpuscular Volume 84.4fl Mean Corpuscular Hemoglobin 29.3pg Mean Corpuscular Hemoglobin Concent 34.7g/dl Red Cell Distribution Width 12.0% Platelet Count 23386^3/UL Mean Platelet Volume 9.7fl Neutrophils % 72.1% Lymphocytes % 19.6% Monocytes % 6.1% Eosinophils % 1.2% Basophils % 0.7% Nucleated Red Blood Cells % 0.0/100WBC Neutrophils # 5.410^3/ul Lymphocytes # 1.510^3/ul Monocytes # 0.510^3/ul Eosinophils # 0.110^3/ul Basophils # 0.110^3/ul Nucleated Red Blood Cells # 0.010^3/ul Prothrombin Time 11.4Sec Prothrombin Time Ratio 0.9 INR International Normalized Ratio 0.83 Activated Partial Thromboplast Time 26.0Sec Urine Color COLORLESS Urine Clarity CLEAR Urine pH 7.0 Urine Specific [place] 1.002 Urine Ketones TRACEmg/dL Urine Nitrite NEGATIVEmg/dL Urine Bilirubin NEGATIVEmg/dL Urine Urobilinogen NEGATIVEmg/dL Urine Leukocyte Esterase NEGATIVELeu/ul Urine Hemoglobin NEGATIVEmg/dL Urine Glucose NEGATIVEmg/dL Urine Total Protein NEGATIVEmg/dl Sodium Level 129mmol/L Potassium Level 4.4mmol/L Chloride Level 93mmol/L Carbon Dioxide Level 25mmol/L Anion Gap 15 Blood Urea Nitrogen 8mg/dl Creatinine 0.67mg/dl Glucose Level 97mg/dl Hemoglobin A1c 5.7% Calcium Level 10.1mg/dl Troponin I < 0.012ng/ml Urine Opiates Screen Negative Urine Barbiturates Negative Urine Amphetamines Screen Negative Urine Benzodiazepines Screen Negative Urine Cocaine Screen Negative Urine Cannabinoids Negative Bedside Glucose 103mg/dL Procedures/MDM EKG read by me: Rate/Rhythm: Regular rate and rhythm at a rate of 71 Intervals: Normal Impression: No evidence of ischemia or arrhythmia CT head negative per radiology. Chest x-ray negative per radiology. Patient is a 61-year-old female with hypertension and diabetes who presents with multiple complaints. She has chest pain and headache. She also complains of high blood pressure. In the emergency department she is very well-appearing and has a normal neurologic exam. At this point I doubt stroke or acute coronary syndrome. I doubt pneumonia, pneumothorax, pulmonary embolism, or aortic dissection. I believe outpatient management is appropriate. She has mild hyponatremia but does not need admission at this time. She would prefer to go home. I do believe that outpatient management is appropriate but she will need to follow-up closely with her primary doctor within 24-48 hours for reevaluation. The patient understands the plan is okay for discharge at this time. Departure Diagnosis: Primary Impression: Dizzy Additional Impressions: Headache Headache type: unspecified Headache chronicity pattern: acute headache Intractability: not intractable Qualified Code: R51 - Acute nonintractable headache, unspecified headache type Hypertension Hypertension type: essential hypertension Qualified Code: I10 - Essential hypertension Hyponatremia Condition: Fair Patient Instructions: Self-Care for Headaches, High Blood Pressure ( Hypertension), Dizziness, Unk Cause Additional Instructions: Call your primary care doctor TOMORROW for an appointment during the next 1-2 days.See the doctor sooner or return here if your condition worsens before your appointment time. NORMA JACKSON MD Oct 14, 2016 15:22
== END 2016-10-14 15:30 | disposition home or self-care (01) ==
LOC: FTE 13:22
DX: R42 Dizziness and giddiness (principal); R51 Headache; I10 Essential (primary) hypertension; E87.1 Hypo-osmolality and hyponatremia; E11.9 Type 2 diabetes mellitus without complications; R06.02 Shortness of breath; Z79.82 Long term (current) use of aspirin; Z79.84 Long term (current) use of oral hypoglycemic drugs
CPT/HCPCS: 36415; 70450; 71010; 80048; 80307; 81003; 82962; 83036; 84484; 85025; 85610; 85730; 93005; Z7502

== ENCOUNTER 2016-10-31 06:19 | Emergency (ER) | END 2016-10-31 08:50 | disposition home or self-care (01) | DX: G45.9 Transient cerebral ischemic attack, unspecified (principal); R51 Headache; I10 Essential (primary) hypertension; E11.9 Type 2 diabetes mellitus without complications; Z79.84 Long term (current) use of oral hypoglycemic drugs; Z87.891 Personal history of nicotine dependence | CPT/HCPCS: 70450; 82962; 93005; Z7502 ==

== ENCOUNTER 2017-08-27 19:58 | Emergency (ER) | END 2017-08-27 23:31 | disposition home or self-care (01) ==

== ENCOUNTER 2017-09-27 19:42 | Emergency (ER) | END 2017-09-27 22:30 | disposition home or self-care (01) ==

== ENCOUNTER 2017-11-30 21:07 | Emergency (ER) | END 2017-12-01 00:49 | disposition home or self-care (01) ==